=== PATIENT | male | born 1995 | race African-American/Black ===

== ENCOUNTER 2020-08-08 01:39 | Emergency (ER) | payer OTHER ==
[~2020-08-08] VITALS: Ht 177.8 cm; Wt 103.1 kg
[2020-08-08] MEDS ORDERED: NAPR500T6 PO (01:44)
[2020-08-08] MEDS ORDERED: LR 1,000 ML IV ONE (03:55)
[2020-08-08] MEDS ORDERED: IPRATROPIUM 0.5MG/ALBUTEROL 2.5MG INH SOL UD 3ML (DUONEB) NEB ONE (04:20)
[2020-08-08] MEDS ORDERED: methylPREDNISolone 125MG 2ML VIAL IV ONE (04:20)
[2020-08-08] MEDS ORDERED: COMBIVENT RESPIMAT 100-20MCG INHALER 4GM INH ONE (04:25)
[2020-08-08 05:01] LABS: RSV AMPLIFICATION NEGATIVE (NEGATIVE)
--- NOTE | 2020-08-08 05:37 | REPVR ---
PROCEDURE INFORMATION: Exam: XR Chest Exam date and time: 08/08/2020 4:53 AM Age: 25 years old Clinical indication: Cough and dyspnea; Additional info: Dyspnea/cough TECHNIQUE: Imaging protocol: XR of the chest Views: 1 view. COMPARISON: No relevant prior studies available. FINDINGS: Lungs: Unremarkable. No consolidation. Pleural spaces: Unremarkable. No pleural effusion. No pneumothorax. Heart/Mediastinum: Unremarkable. No cardiomegaly. Bones/joints: Unremarkable. Other findings: Lordotic projection. IMPRESSION: Negative lordotic chest. No acute process is identified. Electronically signed by: Miguel Beyer On 08/08/2020 05:37:11 AM
[2020-08-08] MEDS ORDERED: AZIT-12 PO (06:19)
[2020-08-08] MEDS ORDERED: PRED20TA PO (06:20)
[2020-08-08] MEDS ORDERED: VENTAER INH (06:21)
[2020-08-08 06:45] VITALS: BP 137/74
--- NOTE | 2020-08-08 08:12 | ECGEPIP ---
[facility] - ED Test Date: 2020-08-08 Pat Name: YOSELIN COREA Department: Room: - Gender: Male Resolution Rep: : 1995 Requested By: NICOLE CLIFTON Order Number: [id number] Reading MD: Tad Gonzalez Measurements Intervals [place] Rate: 81 P: 79 ME: 150 QRS: 76 QRSD: 82 T: 52 QT: 358 QTc: 415 Interpretive Statements Normal sinus rhythm BENIGN EARLY REPOLARIZATION NO PRIORS FOR COMPARISON Electronically Signed on 08-08-2020 8:12:15 EDT by Tad Gonzalez
== END 2020-08-08 06:55 | disposition home or self-care (01) ==
LOC: M ED 01:39
DX: J45.901 Unspecified asthma with (acute) exacerbation (principal); J20.9 Acute bronchitis, unspecified
CPT/HCPCS: 71045; 87631; 93005; 93041; 94640; 94760; 96361; 96374; 99285; J2930

== ENCOUNTER 2020-08-11 13:22 | Emergency (ER) | payer OTHER ==
[~2020-08-11] VITALS: Ht 182.9 cm; Wt 106.7 kg
[~2020-08-11 13:22] MED LIST: AZIT-12 PO; NAPR500T6 PO; PRED20TA PO; VENTAER INH
[2020-08-11 14:25] LABS: BASO % 0.2 % (0.0-1.0); EOS # 0.1 10^3/uL (0.0-0.5); EOS % 1.4 % (0.0-3.0); HEMATOCRIT 41.5 % (42.0-52.0); HEMOGLOBIN 13.5 g/dl (13.5-17.5); LYMPH # 2.3 10^3/uL (1.5-5.0); LYMPH % 26.4 % (24.0-44.0); MEAN CORPUSCULAR HEMOGLOBIN 27.6 pg (27.0-33.0); MEAN CORPUSCULAR HGB CONC 32.5 g/dl (32.0-36.5); MEAN CORPUSCULAR VOLUME 84.7 fl (80.0-96.0); MONO # 0.4 10^3/uL (0.0-0.8); MONO % 4.7 % (2.0-8.0); NEUTROPHILS # 5.8 10^3/uL (1.5-8.5); NEUTROPHILS % 66.6 % (36.0-66.0); PLATELET COUNT, AUTOMATED 205 10^3/uL (150-450); WHITE BLOOD COUNT 8.7 10^3/uL (4.0-10.0)
[2020-08-11 14:48] LABS: BLOOD UREA NITROGEN 19 MG/DL (7-18); CALCIUM LEVEL 8.7 MG/DL (8.5-10.1); CARBON DIOXIDE LEVEL 32 MEQ/L (21-32); CHLORIDE LEVEL 104 MEQ/L (98-107); CREATININE FOR GFR 0.91 MG/DL (0.70-1.30); GLOMERULAR FILTRATION RATE > 60.0 (>60); GLUCOSE, FASTING 99 MG/DL (70-100); SODIUM LEVEL 139 MEQ/L (136-145)
[2020-08-11] MEDS ORDERED: TESS100C PO (15:01)
[2020-08-11 15:13] VITALS: BP 139/90
== END 2020-08-11 15:14 | disposition home or self-care (01) ==
LOC: M ED 13:22
DX: J20.9 Acute bronchitis, unspecified (principal); R05 Cough; S29.011A Strain of muscle and tendon of front wall of thorax, initial encounter; X50.0XXA Overexertion from strenuous movement or load, initial encounter; Y92.9 Unspecified place or not applicable; Y93.9 Activity, unspecified; Y99.9 Unspecified external cause status; Z79.899 Other long term (current) drug therapy